=== PATIENT | female | born 1990 | race Hispanic/Latino ===

== ENCOUNTER 2024-03-05 18:10 | Emergency (ER) | payer MEDICAID, OTHER ==
[~2024-03-05] VITALS: Ht 154.9 cm; Wt 84.8 kg
[~2024-03-05 18:10] MED LIST: PNV1TABL17 PO
[2024-03-05 19:05] LABS: APPEARANCE,URINE CLEAR (CLEAR); BILIRUBIN,URINE NEGATIVE (NEGATIVE); COLOR,URINE LIGHT-YELLOW (YELLOW); GLUCOSE, URINE (UA) NEGATIVE (NEGATIVE); KETONES,URINE NEGATIVE (NEGATIVE); LEUKOCYTE ESTERASE ,URINE 75 Leu/uL (NEGATIVE); NITRATE,URINE NEGATIVE (NEGATIVE); OCCULT BLOOD,URINE SMALL (NEGATIVE); PH,URINE 5.5 (5.0-8.0); PROTEIN,URINE NEGATIVE (NEGATIVE); UROBILINOGEN,URINE 0.2 mg/dL (0.2-1.0)
[2024-03-05 19:09] LABS: ADD UA MICROSCOPIC YES
[2024-03-05 19:10] LABS: BASOPHILS # (AUTO) 0.03 K/uL (0.00-0.20); BASOPHILS % (AUTO) 0.3 % (0.0-5.0); EOSINOPHILS # (AUTO) 0.04 K/uL (0.00-0.70); EOSINOPHILS % (AUTO) 0.4 % (0.0-8.0); HEMATOCRIT 40.9 % (36-48); IMMATURE GRANULOCYTE ABSOLUTE 0.04 K/uL (0-1); LYMPHOCYTES # (AUTO) 2.7 K/uL (1.0-4.8); LYMPHOCYTES % (AUTO) 23.9 % (21.0-51.0); MEAN CORPUSCULAR HEMOGLOBIN 29.7 pg (27.0-33.0); MEAN CORPUSCULAR HGB CONC 33.7 g/dL (32.0-36.0); MONOCYTES # (AUTO) 0.6 K/uL (0.1-1.0); MONOCYTES % (AUTO) 5.6 % (3.0-13.0); NEUTROPHILS # (AUTO) 7.8 K/uL (1.8-7.7); NEUTROPHILS % (AUTO) 69.4 % (40.0-77.0); PLATELET COUNT (AUTO) 222 K/uL (130-400); RED BLOOD CELL COUNT(AUTO) 4.65 MIL/uL (4.00-5.50); RED CELL DISTRIBUTION WIDTH 12.7 % (11.0-15.5); WHITE BLOOD COUNT (AUTO) 11.2 K/uL (4.8-10.8)
[2024-03-05 19:11] LABS: HCG,QUALITATIVE URINE NEGATIVE (NEGATIVE)
[2024-03-05 19:12] LABS: CREATININE 0.8 mg/dL (0.5-1.0); POTASSIUM 3.7 mmol/L (3.5-5.1)
[2024-03-05 19:13] LABS: BACTERIA,URINE RARE /HPF (None Seen); MUCUS,URINE RARE LPF (None Seen); SQUAMOUS EPITHELIAL CELL,UR FEW /HPF (0-2)
[2024-03-05] MEDS: CEFTRIAXONE 1G VIAL IM ONE (20:34)
[2024-03-05] MEDS ORDERED: NITR100C PO (20:35)
[2024-03-05] MEDS ORDERED: ONDA-243 PO (20:35)
[2024-03-05] MEDS ORDERED: PHEN-846 PO (20:35)
[2024-03-05 21:07] VITALS: BP 143/79; PULSE 82; RESP 20; O2SAT 99
== END 2024-03-05 21:08 | disposition home or self-care (01) ==
LOC: EDH 18:10
DX: N39.0 Urinary tract infection, site not specified (principal); R10.2 Pelvic and perineal pain; J45.909 Unspecified asthma, uncomplicated; D64.9 Anemia, unspecified; Z79.899 Other long term (current) drug therapy; Z98.890 Other specified postprocedural states; Z88.6 Allergy status to analgesic agent
CPT/HCPCS: 99285; 76856; 80048; 85025; 87086; 87491; 87591; 81001; 81025; 36415; 96372; J0696